=== PATIENT | female | born 1995 ===

== ENCOUNTER → 2023-09-10 13:38 | Outpatient (BNVA) | payer OTHER, SELFPAY | PROVIDERS: Visit Provider Nurse Practitioner Family | DX: R51.9 Headache, unspecified (principal) | CPT/HCPCS: 99202 ==

== ENCOUNTER → 2023-09-10 13:38 | Outpatient (AMB) | payer OTHER, SELFPAY ==
--- NOTE | 2023-09-10 13:39 | MHC.OFFVIS ---
Intake Vital Signs 09/10/23 13:40 Height 5 ft 2 in Weight 228 lb BMI 41.7 BP 122/70 Blood Pressure Location Rt brachial Position Sitting Pulse 67 Pulse Source Pulse Oximeter Pulse Oximetry (%) 95 Oxygen Delivery Method Room Air Intake Visit Reasons: [id number]-Hozrmmoad Intake Note: Patient presents for headaches. I've gotten 2 really bad headaches where if i look down I get pressure or even moving. Allergies No Known Allergies Allergy (Verified 09/10/23 13:43) PFSH Family History (Updated 09/10/23 @ 13:44 by YESY Morgan) Mother HTN (hypertension) Epilepsy Social History (Updated 09/10/23 @ 13:44 by YESY Morgan) Alcohol intake: never Patient Tobacco Use Status: Never used Tobacco Physical Exam Vital Signs: Last Vital Signs Pulse 67 09/10/23 13:40 BP 122/70 09/10/23 13:40 Pulse Ox 95 09/10/23 13:40 Oxygen Delivery Method Room Air 09/10/23 13:40 BMI result Body Mass Index 41.7 Assessment & Plan Assessment & Plan (1) Headache: Code(s): R51.9 - Headache, unspecified Plan pt left office before being seen by provider Coding Level of Care Code New Pt Level 2 (97012) Diagnoses Headache R51.9 Comment pt left prior to being seen by provider
[2023-09-10 13:40] VITALS: BP 122/70; PULSE 67; O2SAT 95; BMI 41.7
== END ==
PROVIDERS: Visit Provider Nurse Practitioner Family
DX: R51.9 Headache, unspecified (principal)
CPT/HCPCS: 99202

== ENCOUNTER 2024-02-28 22:16 | Emergency (ER) | payer OTHER, SELFPAY ==
[2024-02-28 22:42] VITALS: BP 123/69; PULSE 66; RESP 18; TEMP 36.8; O2SAT 98; BMI 41.0
[2024-02-29 00:28] VITALS: BP 130/69; PULSE 62; RESP 17; TEMP 37.1; O2SAT 98
--- NOTE | 2024-02-29 00:52 | ED_ITS ---
HPI - Wound/Laceration General Chief Complaint: Wound/Laceration Stated Complaint: lip inj Time Seen by Provider: 02/29/24 00:10 Source: patient Mode of arrival: ambulatory History of Present Illness ED Provider: Dr Lopez HPI narrative: 28-year-old female states that she has suffered a mechanical fall when slipping in the kitchen and struck her face on the side of the table and reports laceration to the lip. Related Data Allergies Allergy/AdvReac Type Severity Reaction Status Date / Time No Known Allergies Allergy Verified 02/28/24 22:47 Review of Systems Review of Systems: Pertinent positives and negatives as stated in HPI [facility] Past Medical History Source: nursing notes reviewed Family History Family History Mother HTN (hypertension) Epilepsy Social History Social History Alcohol intake: never Patient Tobacco Use Status: Never used Tobacco Advance Directives: No Advance Directives Information Provided: Yes Do you have a plan to hurt others: No Plan Physical Exam Vital Signs: Vital Signs: Last Vital Signs Temp 98.8 F 02/29/24 00:28 Pulse 62 02/29/24 00:28 Resp 17 02/29/24 00:28 BP 130/69 02/29/24 00:28 Pulse Ox 98 02/29/24 00:28 O2 Del Method Room Air 02/29/24 00:28 BMI result Body Mass Index 41.0 VITAL SIGNS: Reviewed. GENERAL: Well developed, well nourished, in no acute distress. HEAD: Normocephalic/atraumatic EYES: PERRLA, EOMI LIP: Laceration noted to the mucosal surface of the upper left lip without involvement of vermilion portion LUNGS: Normal breath sounds. No adventitious sounds or accessory muscle use. SpO2<98> CARDIOVASCULAR: Regular rate and rhythm without noted murmurs ABDOMEN: Soft, non-tender, non-distended with bowel sounds. MUSCULOSKELETAL: No tenderness, deformities, or effusions noted on gross inspection. EXTREMITIES: No cyanosis, clubbing or edema. SKIN: Inspection of the skin reveals no rashes, ulcerations, jaundice, pallor, or petechiae. NEUROLOGIC: Alert and oriented x 4. Strength and sensation to light touch were grossly intact x 4. Medical Decision Making Medical Decision Making [facility] Narrative: 28-year-old female with a laceration on the mucosal surface of her left upper l ip, my interpretation is this can heal spontaneously on its own, patient given combination analgesics and otherwise discharged home with instructions to avoid all citrus/salty foods and to rinse mouth well after eating meals. Differential Diagnosis Differential Diagnoses: The differential diagnosis associated with the presentation includes Please see the discussion above Admission/Observation Consideration of admission/observation: Escalation of care including a dmission/observation considered Please see the discussion above Discharge Plan Discharge Clinical Impression: Laceration of lip Patient Disposition: Home, Self-Care Instructions: Laceration (ED) Additional Instructions: 1. Recommend Tylenol/ibuprofen as needed for pain control. 2. Recommend that you avoid all salty/citrus and also recommend rinsing mouth with a mixture of warm water and table salt after meals. 3. This injury should heal within the next 2-3 days. Return to the ER for any worsening symptoms. Print Language: Trin[place]
[2024-02-29] MEDS: Acetaminophen 325 MG TABLET 975 MG PO (01:21)
[2024-02-29] MEDS: Ibuprofen 400 MG TABLET PO (01:22)
[2024-02-29 01:25] VITALS: BP 129/80; PULSE 70; RESP 18; TEMP 36.8; O2SAT 98
== END 2024-02-29 01:26 | disposition home or self-care (01) ==
PROVIDERS: Emergency Provider Student in an Organized Health Care Education/Training Program
DX: S01.511A Laceration without foreign body of lip, initial encounter (principal); W01.198A Fall on same level from slipping, tripping and stumbling with subsequent striking against other object, initial encounter; Y93.9 Activity, unspecified; Y92.000 Kitchen of unspecified non-institutional (private) residence as the place of occurrence of the external cause; Y99.9 Unspecified external cause status
CPT/HCPCS: 99283; 99284